=== PATIENT | male | born 2000 | race Caucasian/White ===

== ENCOUNTER 2023-12-03 11:00 | Emergency (ER) | payer BC, SELFPAY ==
[2023-12-03] VITALS (12 sets, daily range): BP systolic 86–160; BP diastolic 70–93; PULSE 58–71; RESP 14–20; TEMP 36.3; O2SAT 99–100
--- NOTE | 2023-12-03 15:51 | ED.NAVMDI ---
HPI - Nausea/Vomiting/Diarrhea General Chief complaint: Nausea/Vomiting/Diarrhea Stated complaint: gi issues Time Seen by Provider: 12/03/23 15:46 Source: patient and other (girlfriend) Mode of arrival: ambulatory Limitations: no limitations History of Present Illness HPI Narrative: Patient awoke at 3:00 a.m. this morning with abdominal cramping. He then developed diarrhea. This diarrhea that became bloody stools and bright red blood per rectum. He states since being in the emergency department he has had about 4-5 episodes, 7 8 total. He denies any vomiting but has felt nauseated. No fevers or chills. This has never happened before although he does state that he has a history of bloating and gas. He has never seen/established with a GI specialist. His primary care physician is in [place]. He lives by himself and he has no sick contacts. No new foods. last oral intake was this morning. He does still have an appetite. He notes that he did have initially some scrotal heaviness this morning well using the bathroom but this resolved. He denies any flank or back pain. Abdominal cramping is in the lower quadrants, RLQ and LLQ. Related Data Allergies Allergy/AdvReac Type Severity Reaction Status Date / Time Penicillins Allergy Unknown Verified 12/03/23 16:38 [facility] Social History Social History Living arrangements: alone Exam Narrative: GENERAL: Well-appearing, well-nourished, and in no acute distress. HEAD: Normocephalic, atraumatic. EYES: Non injected, non icteric ENT: Nares clear, no rhinorrhea or epistaxis. NECK: Supple. CHEST: Speaking in full sentences. No respiratory distress. HEART: Bradycardic rate and rhythm. . ABDOMEN: Soft, nondistended. Nontender to palpation throughout. No rigidity or guarding. Rectal exam performed. No evidence of hemorrhoids, ulcerations, or fissures. Normal sphincter tone. No masses in rectal vault. Fecal occult blood is mildly positive (slightly blue). EXTREMITIES: Normal range of motion. No edema. SKIN: Warm, dry, no rash. NEURO: No focal deficits. Alert and oriented x3. PSYCH: Normal mood and affect. Course Vital Signs Vital signs: Vital Signs Temperature 97.4 F L 12/03/23 11:09 Pulse Rate 59 L 12/03/23 11:09 Respiratory Rate 18 12/03/23 11:09 Blood Pressure 150/93 H 12/03/23 11:09 Pulse Oximetry 100 12/03/23 11:09 Temperature 97.4 F L 12/03/23 11:09 Pulse Rate 58 L 12/03/23 19:23 Respiratory Rate 14 12/03/23 19:23 Blood Pressure 158/76 H 12/03/23 19:23 Pulse Oximetry 99 12/03/23 19:23 MDM - Nausea/Vomiting/Diarrhea MDM Narrative Medical decision making narrative: The patient is a 22 year old who comes to the emergency department with abdominal cramping and diarrhea now with rectal bleeding versus hematochezia that started at approximately 3am. In the ED they are initially afebrile and hemodynamically stable without tachycardia or hypotension. The differential for acute (<14d) diarrhea includes infectious etiologies (viral, preformed toxins, toxins formed after colonization, invasive bacteria, and parasites), medications, inflammatory causes (IBD, radiation enteritis, ischemic colitis, diverticulitis), malabsorption, secretory causes, or motility disorders. Considered hemorrhoids, diverticulosis versus angiodysplasia versus Meckel's diverticulum. Colon cancer also possible though this is first presentation and less likely. Unlikely to be ischemic bowel. Will obtain labs, give IV fluids and Zofran. Patient has a reassuring physical exam. Labs are unremarkable without leukocytosis , renal dysfunction, electrolyte abnormalities. He does state that he used the bathroom again after treatment and had a scant amount of blood. Through shared decision making, we did extensively discuss the possibility of performing CT scan. However, given symptoms appear to be improving
[2023-12-03 16:39] LABS: Basophils Percent Auto 0.2 % (0.2-1.2); Eosinophils Percent Auto 0.3 % (0-4.4); Hemoglobin 15.7 g/dL (14.0-18.0); Immature Granulocyte Absolute 0.02 K/mm3 (0.00-0.031); Immature Granulocyte Percent A 0.2 % (0-0.5); Lymphocytes Absolute Auto 1.32 K/mm3 (0.9-3.2); Lymphocytes Percent Auto 14.1 % (18.3-44.2); Mean Corpuscular HGB Conc 34.1 g/dl (32-36); Mean Corpuscular Hemoglobin 30.9 pg (26-34); Mean Corpuscular Volume 90.6 fl (80-100); Mean Platelet Volume 9.8 fl (7.4-10.4); Monocytes Absolute Auto 0.6 K/mm3 (0.1-0.6); Monocytes Percent Auto 6.7 % (2.6-8.5); Neutrophils Absolute Auto 7.4 K/mm3 (1.3-6.7); Neutrophils Percent Auto 78.5 % (45.5-73.1); Platelet Count Result 221 k/mm3 (150-375); Red Blood Count 5.08 M/mm3 (4.6-6.20); Red Cell Distribution Width 12.1 % (11.5-14.5); White Blood Count 9.4 K/mm3 (4.5-10.0)
[2023-12-03] MEDS: ONDANSETRON INJ 4 MG/2 ML VIAL IV PUSH (16:42)
[2023-12-03] MEDS: SODIUM CHLORIDE 0.9% IV 1,000 ML 999 ML IV CONT (16:42)
[2023-12-03 16:56] LABS: Alanine Aminotransferase 33 U/L (6-50); Albumin Level 4.6 g/dL (3.5-5.1); Alkaline Phosphatase 62 U/L (38-126); Anion Gap 11 mmol/L (8-16); Aspartate Amino Transferase 34 U/L (17-59); Bilirubin,Total 0.8 mg/dL (0.2-1.3); Blood Urea Nitrogen 14 mg/dL (9-20); Calcium 9.2 mg/dL (8.4-10.2); Carbon Dioxide 25 mmol/L (22-30); Chloride 101 mmol/L (98-107); Estimated CRCL calculation 130 ml/min; Estimated Glomerular Filt Rate > 60; Glucose 102 mg/dL (65-110); Magnesium 1.8 mg/dL (1.6-2.3); Potassium 4.3 mmol/L (3.4-5.0); Sodium 137 mmol/L (137-145)
[2023-12-03 17:26] LABS: Influenza A QL RT-PCR Negative (Negative); Influenza B QL RT-PCR Negative (Negative); RSV RNA, RT-PCR Negative (Negative); SARS-CoV-2 RNA PCR Negative (Negative)
[2023-12-03] MEDS: DICYCLOMINE HCL 10 MG CAPSULE PO (18:29)
== END 2023-12-03 19:27 | disposition home or self-care (01) ==
PROVIDERS: Emergency Provider Student in an Organized Health Care Education/Training Program
DX: K92.1 Melena (principal); Z20.822 Contact with and (suspected) exposure to COVID-19
CPT/HCPCS: 36415; 80053; 83735; 85025; 87637; 96361; 96374; 99284; A9270; J2405; J7030